=== PATIENT | male | born 1950 | race Caucasian/White ===

== ENCOUNTER → 2018-04-18 | Outpatient (REF) | payer OTHER | LOC: M SMT 13:02 | PROVIDERS: ATTEND Nurse Practitioner Family | DX: R97.20 Elevated prostate specific antigen [PSA] (principal); Z12.5 Encounter for screening for malignant neoplasm of prostate | CPT/HCPCS: 51798; 87086; G0463 ==

== ENCOUNTER → 2018-05-03 | Outpatient (CLI) | payer OTHER ==
[~2018-05-03] MED LIST: PROHANCE 279.3MG/ML 15ML VIAL (A9576) As Ordered ONE
--- NOTE | 2018-05-03 18:36 | REP ---
Multi parametric prostate MRI without and with IV gadolinium: History: Elevated PSA. Anticipated MR ultrasound fusion directed needle biopsy procedure. Comparisons: No comparison imaging. TECHNIQUE: Using a phased array surface coil, small field of view imaging was acquired using T2-weighted scans in the axial, coronal, and sagittal imaging planes. Small field of view diffusion-weighted sequences are acquired. Small field of view axial T1-weighted scans are acquired dynamically after the intravenous administration of 13 mL of ProHance. Prostate MRI findings: Pre and postcontrast images show no evidence of adenopathy or skeletal metastatic disease. Prostate glandular dimensions are 4.7 x 3.3 x 3.2 cm. Calculated glandular volume is 28.2 ml. Seminal vesicles are unremarkable. Urinary bladder meeks appear intact. There is a 13 mm polypoid area along the right side of the rectum projecting into its lumen. A rectal neoplastic polyp is possibility. Internal hemorrhoids are a possibility as well. This should be correlated with findings on digital rectal examination. There are to nodular areas in the central gland which are identified, outlined, and transmitted for consideration of ultrasound MR fusion directed biopsy. Lesion #1 is in the left base transition zone with a calculated volume of 0.77 ml with dimensions of 1.6 x 0.6 x 1.0 cm. This is a discrete homogeneous low signal intensity focus on T2-weighted scans with no observable reduction in ADC on diffusion images and a type 2 contrast enhancement curve. Clinically significant cancer is equivocal. Lesion #2 is in the right mid transition zone with a calculated volume of 0.36 ml and diameter is 0.9 x 0.5 x 1.0 cm. It has a heterogeneous intermediate T2 signal intensity with no reduction in ADC and a type 3 contrast enhancement curve. Clinically significant cancer is equivocal. The peripheral zone is homogeneous and fairly normal appearance. Impression: 1. The multi paraventricular prostate MRI study with two nodular lesions identified and transmitted for consideration of MR/ultrasound directed fusion via needle biopsy. 2. Possible rectal polyp versus internal hemorrhoids. Correlation with digital rectal exam findings were recommended. Electronically Signed by Paul Grant MD 05/03/2018 07:00 P
== END ==
LOC: M RAD 14:24
PROVIDERS: ATTEND Nurse Practitioner Family
DX: R97.20 Elevated prostate specific antigen [PSA] (principal)
CPT/HCPCS: 72197; A9576

== ENCOUNTER → 2018-06-20 | Outpatient (CLI) | payer OTHER ==
--- NOTE | 2018-06-20 15:06 | REP ---
TRANSRECTAL PROSTATE ULTRASOUND: 06/20/2018. Clinical history: Elevated PSA. Findings: Sonographic guidance provided to Dr. Loyd of the urology division for transrectal prostate biopsy. The prostate measures 3.7 x 2.7 x 5.2 cm giving calculated volume of 26.8 ml. A few scattered calcifications are noted. Technologist has documented 19 passes with the 18 gauge needle into the prostate for biopsy. Seminal vesicles grossly normal. Impression: 1. Transrectal ultrasound-guided prostate biopsy. Electronically Signed by Jacky Arita MD 06/20/2018 05:57 P
== END ==
LOC: M SMT PRO 08:56
PROVIDERS: ATTEND Urology
DX: C61 Malignant neoplasm of prostate (principal)
CPT/HCPCS: 55700; 76872; 76942; G0416

== ENCOUNTER 2018-08-08 12:06 | Inpatient (IN) | payer OTHER ==
[~2018-08-08] VITALS: Ht 167.6 cm; Wt 66.2 kg
[~2018-08-08 12:06] MED LIST changes: +ALLE4TAB11 PO; +ASPI81TA26 PO; +CLAR10CA3 PO; +HEPARIN SOD (PORCINE) 5000 UNITS/ML VIAL SQ ONE; +HYDR-643 PO; +LANS15CA PO; +LOSA25TA14 PO; +LR 1,000 ML IV SCH; +PRAV40TA2 PO; -PROHANCE 279.3MG/ML 15ML VIAL (A9576) As Ordered ONE; +TRAM50TA2 PO
[2018-08-08] MEDS ORDERED: HEPARIN SOD (PORCINE) 5000 UNITS/ML VIAL As Ordered ONE (12:37)
[2018-08-08] MEDS ORDERED: ceFAZolin 2 GM/D5W 50 ML IV BAG (J0690 PER 500MG) As Ordered ONE (12:38)
[2018-08-08] MEDS ORDERED: ROCURONIUM BROMIDE 50 MG/5 ML VIAL As Ordered ONE ×2 (12:46→15:53)
[2018-08-08] MEDS ORDERED: PROPOFOL 200 MG/20 ML VIAL As Ordered ONE ×2 (12:46→17:13)
[2018-08-08] MEDS ORDERED: LIDOCAINE 2% INJ 100 MG/5 ML SDV (FOR ANES.) As Ordered ONE (12:46)
[2018-08-08] MEDS ORDERED: MIDAZOLAM INJ 2 MG/2 ML VIAL (J2250) As Ordered ONE (12:46)
[2018-08-08] MEDS ORDERED: fentaNYL 100 MCG/2 ML INJECTION (J3010) As Ordered ONE ×2 (12:47→17:28)
[2018-08-08] MEDS ORDERED: HYDROmorphone HCL 2 MG/ML 1ML VIAL (J1170) As Ordered ONE (14:08)
[2018-08-08] MEDS ORDERED: ESMOLOL INJ 100MG/10ML VIAL As Ordered ONE (14:30)
[2018-08-08] MEDS ORDERED: ONDANSETRON 4MG/2ML VIAL (J2405) As Ordered ONE (16:54)
[2018-08-08] MEDS ORDERED: LIDOCAINE 1% SDV INJ 30 ML VIAL As Ordered ONE (17:52)
[2018-08-08] MEDS ORDERED: BUPIVACAINE HCL 0.25% 30 ML VIAL As Ordered ONE (17:52)
[2018-08-08] MEDS ORDERED: hydrOXYzine 10 MG TAB PO PRN (18:00)
[2018-08-08] MEDS ORDERED: METOCLOPRAMIDE INJ 10MG/2ML VIAL (J2765) IV PRN (18:00)
[2018-08-08] MEDS: NS 1,000 ML IV SCH (18:00)
[2018-08-08] MEDS ORDERED: MORPHINE 4 MG/ML 1ML VIAL/SYRINGE (J2270) IV PRN (18:00)
[2018-08-08] MEDS ORDERED: ONDANSETRON 4MG/2ML VIAL (J2405) IV PRN ×2 (18:00)
[2018-08-08] MEDS ORDERED: LR 1,000 ML IV SCH (18:00)
[2018-08-08] MEDS ORDERED: PERCOCET 5MG/325MG TAB PO PRN (18:00)
[2018-08-08] MEDS ORDERED: MORPHINE 10 MG/ML 1ML VIAL (J2270) IV PRN (18:00)
[2018-08-08] MEDS ORDERED: fentaNYL 100 MCG/2 ML INJECTION (J3010) IV PRN (18:00)
--- NOTE | 2018-08-08 18:23 | ROOPDOC ---
[facility] Report Of Operation Report of Operation DATE OF PROCEDURE: 08/08/18 PREPROCEDURE DIAGNOSES: Prostate Cancer. POSTPROCEDURE DIAGNOSES: Prostate Cancer. PROCEDURE: Robotic-assisted Laparoscopic Radical Prostatectomy with Bilateral Pelvic Lymph Node Dissection. SURGEON: Daquan Wells MD DIRECTOR OF MEDICARE: Christy Morales NP ANESTHESIA: General. OPERATIVE INDICATIONS: This is a 67 year old male with intermediate risk clinical T1c [place] 3+4 prostate cancer. After a discussion of the options for treatment, he elected to undergo the above procedure. DESCRIPTION OF PROCEDURE: The patient was brought to the operating room and general anesthesia was induced. Prophylactic antibiotics were infused. He was then placed in the supine position and prepped and draped in the usual sterile fashion. At this point, a Barrientos catheter was inserted into the bladder and the balloon was filled with 10 mL of sterile water. We then made a midline incision just above the umbilicus for an 8 mm port. A Veress needle was utilized to achieve pneumoperitoneum. Next, an 8 mm port was inserted into the incision and subsequently a camera was inserted. There were no injuries from the Veress needle or initial trocar placement. At this point, we placed the remaining ports, including a 12 mm biology laboratory assistant port and then three robotic ports in the usual configuration in line with the [facility]. Once all the ports were placed, the robot was docked. Lysis of adhesions between the sigmoid colon and abdominal wall was then performed. The bladder was then released from the anterior abdominal wall using electrocautery. Once the bladder was dropped, the fat overlying the prostate was cleared using electrocautery. The superficial dorsal vein was controlled with electrocautery. The endopelvic fascia was opened on both sides and the dorsal venous complex was cleared. Next, a #0 Vicryl [id number]-mz-bbcly stitch was placed around the dorsal venous complex. Once that was done, the bladder was opened and dissected away from the prostate. At this point, the prostate was lifted up. At this point, the prostate was lifted up. The vasa deferentia were identified in the midline. They were controlled with electrocautery and then transected. The seminal vesicles were also dissected off bilaterally. The rectum was safely mobilized away from the prostate. At this point I ligated and transected bilateral prostatic pedicles using the Harmonic scalpel. The pedicles were carried towards the apex. After taking care of the pedicles and mobilizing the rectum off the prostate below, the prostate was only connected by the urethra. At this point, the dorsal venous complex was transected with electrocautery. The urethra was then opened and the catheter was withdrawn and the posterior urethra was transected, thus freeing the prostate. At this point, we checked for hemostasis and it did appear very good. Next, we performed bilateral pelvic lymph node dissection. This was done in a standard fashion. The limits of dissection were the iliac vein proximally, the obturator nerve distally, the pelvic sidewall laterally, and the bladder medially. All lymphatic tissue within these limits was removed. I performed the same procedure on both the right and left sides. Hemostasis was then obtained with a combination of bipolar electrocautery and Weck clips. The lymphatic packets were then placed in separate Endo Catch bags for future retrieval. Once hemostasis was confirmed, I then moved on to perform the vesicourethral anastomosis. The vesicourethral anastomosis was performed in running fashion using a Quill stitch. Once this was done, the final #20-Cambodian Barrientos catheter was placed. The balloon was filled with 15 mL of sterile water. Upon completion of the vesicourethral anastomosis, it was tested by filling the bladder with sterile water. The anastomosis appeared to be watertight. At this point, the prostate and seminal vesicles were placed in an Endo Catch bag for future retrieval. The robot was then undocked. A Yeimi fascial closure device was utilized to place a #0 Vicryl suture between the fascia of the 12 mm biology laboratory assistant port. At this point, a Lon-Lentz drain was brought in through the left robotic port skin site and the drain was positioned anterior to the bladder. The drain was secured to the skin with #2-0 Ethilon suture. Next, all the remaining ports were removed and there did not appear to be any bleeding from any of the port sites. The prostate, as well as the lymphatic packets were then extracted from the camera port site after the skin was extended. The fascia in this incision was then closed with a running #0 Vicryl stitch. The previously placed #0 Vicryl free ties through the biology laboratory assistant port were then tied down and all incisions were irrigated. Last, all of the incisions were closed with running subcuticular #4-0 Monocryl sutures. Local anesthesia was applied. Dermabond was then applied to the incisions. This marked the conclusion of the procedure. The patient was then awakened from anesthesia and transported to the recovery room in stable condition. ESTIMATED BLOOD LOSS: 50 mL. COMPLICATIONS: None. SPECIMENS: Prostate and seminal vesicles, right pelvic lymph nodes, left pelvic lymph nodes. PLAN: The patient will be admitted to the hospital postoperatively, and he will likely be discharged home within the next 1-2 days. DAQUAN WELLS MD Aug 08, 2018 18:23
[2018-08-08 18:31] LABS: HEMATOCRIT 39.2 % (42.0-52.0); HEMOGLOBIN 13.4 g/dl (13.5-17.5); MEAN CORPUSCULAR HEMOGLOBIN 30.7 pg (27.0-33.0); MEAN CORPUSCULAR HGB CONC 34.2 g/dl (32.0-36.5); MEAN CORPUSCULAR VOLUME 89.7 fl (80.0-96.0); PLATELET COUNT, AUTOMATED 274 10^3/uL (150-450); RED BLOOD COUNT 4.37 10^6/uL (4.30-6.10); WHITE BLOOD COUNT 14.9 10^3/uL (4.0-10.0)
[2018-08-08 18:32] LABS: BLOOD UREA NITROGEN 13 MG/DL (7-18); CALCIUM LEVEL 8.3 MG/DL (8.8-10.2); CARBON DIOXIDE LEVEL 25 MEQ/L (21-32); CHLORIDE LEVEL 107 MEQ/L (98-107); CREATININE FOR GFR 1.26 MG/DL (0.70-1.30); GLOMERULAR FILTRATION RATE > 60.0 (>49); GLUCOSE, FASTING 160 MG/DL (70-100); POTASSIUM SERUM 4.1 MEQ/L (3.5-5.1); SODIUM LEVEL 138 MEQ/L (136-145)
[2018-08-08 19:00] VITALS: BP 129/59
[2018-08-08 19:30] VITALS: BP 164/74
[2018-08-08] MEDS: DOCUSATE SODIUM 100 MG CAP PO SCH (20:04)
[2018-08-08] MEDS: traMADol 50 MG TAB PO PRN (20:05)
[2018-08-08 20:30] VITALS: BP 155/68
[2018-08-08] MEDS ORDERED: PRAVASTATIN 20 MG TAB PO SCH (21:00)
[2018-08-08 21:30] VITALS: BP 156/70
[2018-08-08 22:30] VITALS: BP 152/74
[2018-08-08] MEDS: ACETAMINOPHEN TAB 650MG DOSE (2X325MG) PO PRN (22:57)
[2018-08-08] MEDS: HEPARIN SOD (PORCINE) 5000 UNITS/ML VIAL SC SCH (22:58)
[2018-08-08] MEDS: ceFAZolin SOD 1 GM in D5W MINI-BAG PLUS 50 ML IV SCH (22:58)
[2018-08-08] MEDS ORDERED: POLYVINYL ALCOHOL OPHTH SOLN 15 ML(LIQUITEARS) OD PRN (23:15)
[2018-08-08 23:30] VITALS: BP 160/72
[2018-08-09] MEDS: NS 1,000 ML IV SCH (02:52)
[2018-08-09] MEDS: traMADol 50 MG TAB PO PRN ×3 (02:53→13:37)
[2018-08-09 04:00] VITALS: BP 150/72
[2018-08-09] MEDS: HEPARIN SOD (PORCINE) 5000 UNITS/ML VIAL SC SCH ×2 (06:00→13:36)
[2018-08-09] MEDS: ceFAZolin SOD 1 GM in D5W MINI-BAG PLUS 50 ML IV SCH (06:00)
[2018-08-09 06:29] LABS: HEMATOCRIT 36.8 % (42.0-52.0); HEMOGLOBIN 12.7 g/dl (13.5-17.5); MEAN CORPUSCULAR HEMOGLOBIN 30.8 pg (27.0-33.0); MEAN CORPUSCULAR HGB CONC 34.5 g/dl (32.0-36.5); MEAN CORPUSCULAR VOLUME 89.1 fl (80.0-96.0); PLATELET COUNT, AUTOMATED 289 10^3/uL (150-450); RED BLOOD COUNT 4.13 10^6/uL (4.30-6.10); WHITE BLOOD COUNT 14.6 10^3/uL (4.0-10.0)
[2018-08-09 06:53] LABS: BLOOD UREA NITROGEN 18 MG/DL (7-18); CARBON DIOXIDE LEVEL 25 MEQ/L (21-32); CHLORIDE LEVEL 107 MEQ/L (98-107); CREATININE FOR GFR 1.17 MG/DL (0.70-1.30); GLOMERULAR FILTRATION RATE > 60.0 (>49); GLUCOSE, FASTING 122 MG/DL (70-100); POTASSIUM SERUM 4.1 MEQ/L (3.5-5.1); SODIUM LEVEL 138 MEQ/L (136-145)
--- NOTE | 2018-08-09 07:45 | IPNPDOC ---
Assessment/Plan Date Seen The patient was seen on 08/09/18. Patient Summary This is a 67 y/o M POD1 s/p RALP w/ BPLND. He is doing well. Vitals are stable. Good UOP w/ minimal drain output. Plan/VTE VTE Prophylaxis Ordered?: Yes VTE Exclusion Mechanical Proph: N/A:VTE Prophy Ordered VTE Exclusion Pharmacological: N/A:VTE Prophy Ordered Plan/Urinary Catheter Urinary Catheter: Other Catheter: (catheter will need to stay in for 7-10 days for healing of the vesicourethral anastomosis) Plan - d/c IVF - tramadol prn pain - cont home meds - SCDs when in bed - SQH - incentive spirometry - strict I/Os - advance diet as tolerated - possible discharge home later today Subjective Review oF Systems Chief Complaint The patient is a 67-year-old male admitted with a reason for visit of Prostate Cancer. Events since Last Encounter No acute events o/n. Good pain control. No n/v. Has not ambulated yet. No flatus. No f/c/ns. Objective Physical Examination General Exam: Alert, Cooperative, No Acute Distress ABDOMEN EXAM: Soft, Tenderness (mild), Other (incisions clean/dry/intact; WILVER w/ serosanguinous output) Skin Exam: Nl turgor and temperature Neuro Exam: Normal Speech Psych Exam: Mental status NL, Mood NL Other physical findings catheter in place, draining clear urine Vital Signs/I&O Vital Signs Date Time Temp Pulse Resp B/P (MAP) Pulse Ox O2 Delivery O2 Flow Rate FiO2 08/09/18 04:00 99.3 80 18 150/72 (98) 98 08/08/18 18:15 2 I&O- Last 24 Hours up to 6 AM 08/09/18 06:00 Intake Total 1800 ml Output Total 785 ml Balance 1015 ml Laboratory Data Labs 24H Laboratory Tests 2 08/08/18 17:59: Nucleated Red Blood Cells % (auto) 0.0, Anion Gap 6L, Glomerular Filtration Rate > 60.0, Blood Urea Nitrogen 13, Creatinine 1.26, Sodium Level 138, Potassium Level 4.1, Chloride Level 107, Carbon Dioxide Level 25, Calcium Level 8.3L 08/09/18 05:29: Nucleated Red Blood Cells % (auto) 0.0, Anion Gap 6L, Glomerular Filtration Rate > 60.0, Blood Urea Nitrogen 18, Creatinine 1.17, Sodium Level 138, Potassium Level 4.1, Chloride Level 107, Carbon Dioxide Level 25, Calcium Level 8.0L CBC/BMP Laboratory Tests 08/08/18 17:59 Red Blood Count 4.37, Mean Corpuscular Volume 89.7, Mean Corpuscular Hemoglobin 30.7, Mean Corpuscular Hemoglobin Concent 34.2, Red Cell Distribution Width 12. 1, Calcium Level 8.3 L 08/09/18 05:29 Red Blood Count 4.13 L, Mean Corpuscular Volume 89.1, Mean Corpuscular Hemoglobin 30.8, Mean Corpuscular Hemoglobin Concent 34.5, Red Cell Distribution Width 12.1, Calcium Level 8.0 L DAQUAN WELLS MD Aug 09, 2018 07:45
[2018-08-09] MEDS ORDERED: PANTOPRAZOLE 40MG TAB (PROTONIX) PO SCH (09:00)
[2018-08-09] MEDS ORDERED: LORATADINE 10 MG TAB PO SCH (09:00)
[2018-08-09] MEDS ORDERED: ASPIRIN 81 MG ENTERIC TAB PO SCH (09:00)
[2018-08-09] MEDS ORDERED: LOSARTAN 25 MG TAB PO SCH (09:00)
[2018-08-09 09:22] VITALS: BP 167/71
[2018-08-09] MEDS: DOCUSATE SODIUM 100 MG CAP PO SCH (09:23)
[2018-08-09 10:00] VITALS: BP 166/72
[2018-08-09] MEDS: ACETAMINOPHEN TAB 650MG DOSE (2X325MG) PO PRN ×2 (11:43→15:59)
[2018-08-09 14:00] VITALS: BP 160/78
[2018-08-09] MEDS ORDERED: COLA100C5 PO (16:03)
[2018-08-09] MEDS ORDERED: ACET-908 PO (16:03)
[2018-08-09] MEDS ORDERED: VIST25CA PO (16:06)
[2018-08-09] MEDS ORDERED: CIPR-249 PO (16:11)
[2018-08-09] MEDS ORDERED: ULTR50TA8 PO (16:11)
--- NOTE | 2018-08-09 16:21 | DSES ---
DATE OF ADMISSION: 08/08/2009 DATE OF DISCHARGE: 08/09/2018 ADMISSION DIAGNOSIS: Prostate cancer. DISCHARGE DIAGNOSIS: Prostate cancer. ADMITTING PHYSICIAN: Dr. All Loyd. DISCHARGING PHYSICIAN: Dr. All Loyd. PROCEDURE PERFORMED: Robotic assisted laparoscopic radial prostatectomy. Bilateral pelvic lymph node dissection on 08/08/2018. HISTORY OF PRESENT ILLNESS: This is a 67-year-old male with prostate cancer who was admitted to the hospital after undergoing the above listed procedures. HOSPITALIZATION COURSE: The patient's postoperative course was unremarkable. On postoperative day 1 he was ambulating well and tolerating a regular diet. His pain was well controlled with oral pain medications. All of his blood work was within acceptable limits. He had excellent urine output through his catheter and minimal output from the strain. His Lon Lentz drain was therefore removed on postoperative day 1. Since he is doing so well he was deemed ready for discharged. He is discharged home on postoperative day 1 with his catheter in place with the plan for him to followup in the clinic in approximately 1 week for catheter removal and to discuss pathology results.
== END 2018-08-09 17:05 | disposition home or self-care (01) | DRG 708 ==
LOC: M OR 12:06 → M MS5PR 18:45
PROVIDERS: ADMIT Urology; ATTEND Urology
PROC: 07B Lymphatic and Hemic Systems, Excision (ICD-10-PCS; 2018-08-08)
PROC: 8E0W4CZ Robotic Assisted Procedure of Trunk Region, Percutaneous Endoscopic Approach (ICD-10-PCS; 2018-08-08)
PROC: 0VT04ZZ Resection of Prostate, Percutaneous Endoscopic Approach (ICD-10-PCS; principal; 2018-08-08 14:30)
DX: C61 Malignant neoplasm of prostate (principal); Z79.82 Long term (current) use of aspirin; Z79.899 Other long term (current) drug therapy; M19.90 Unspecified osteoarthritis, unspecified site; F43.10 Post-traumatic stress disorder, unspecified

== ENCOUNTER → 2018-09-06 | Outpatient (CLI) | payer OTHER ==
[~2018-09-06] MED LIST changes: +ACET-908 PO; +CIPR-249 PO; +COLA100C5 PO; -HEPARIN SOD (PORCINE) 5000 UNITS/ML VIAL SQ ONE; -LR 1,000 ML IV SCH; +ULTR50TA8 PO; +VIST25CA PO
== END ==
LOC: M SMT 11:50
PROVIDERS: ATTEND Urology
DX: C61 Malignant neoplasm of prostate (principal)

== ENCOUNTER → 2018-10-31 | Outpatient (REF) | payer OTHER ==
[2018-10-31 13:38] LABS: APPEARANCE, URINE CLEAR (CLEAR); BACTERIA, URINE AUTO NEGATIVE (NEGATIVE); BILIRUBIN, URINE AUTO NEGATIVE (NEGATIVE); BLOOD, URINE BLOOD 2+ (NEGATIVE); COLOR, URINE YELLOW (YELLOW); GLUCOSE, URINE (UA) AUTO NEGATIVE (NEGATIVE); KETONE, URINE AUTO NEGATIVE (NEGATIVE); LEUKOCYTE ESTERASE, URINE AUTO NEGATIVE (NEGATIVE); MUCUS, URINE SMALL (NEGATIVE); NITRITE, URINE AUTO NEGATIVE (NEGATIVE); PROTEIN, URINE AUTO NEGATIVE (NEGATIVE); RBC, URINE AUTO 4 /HPF (0-3); SPECIFIC GRAVITY URINE AUTO 1.018 (1.002-1.035); SQUAMOUS EPITHELIAL CELL UR AU 0 /HPF (0-6); UROBILINOGEN, URINE AUTO 0.2 mg/dL (0.0-2.0); WBC, URINE AUTO 2 /HPF (0-3)
== END ==
LOC: M SMT 12:45
PROVIDERS: ATTEND Urology
DX: R30.0 Dysuria (principal)

== ENCOUNTER → 2018-12-04 | Outpatient (CLI) | payer OTHER | LOC: M SMT 09:10 | PROVIDERS: ATTEND Urology | DX: C61 Malignant neoplasm of prostate (principal) ==

== ENCOUNTER → 2019-03-13 | Outpatient (CLI) | payer OTHER ==
[~2019-03-13] MED LIST changes: +VENTAER INH
== END ==
LOC: M SMT 10:10
PROVIDERS: ATTEND Urology
DX: C61 Malignant neoplasm of prostate (principal)

== ENCOUNTER 2019-04-11 10:19 | Day surgery (SDC) | payer OTHER ==
[~2019-04-11] VITALS: Ht 167.6 cm; Wt 67.6 kg
[~2019-04-11 10:19] MED LIST changes: +NS 1,000 ML IV ONE
[2019-04-11] MEDS ORDERED: PROPOFOL 200 MG/20 ML VIAL As Ordered ONE (12:14)
[2019-04-11] MEDS ORDERED: LIDOCAINE 2% INJ 100 MG/5 ML SDV (FOR ANES.) As Ordered ONE (12:14)
--- NOTE | 2019-04-11 12:24 | ROOR ---
Patient Name: Vel Isbell Procedure Date: 04/11/2019 12:07 PM Date of : 1950 Age: 68 Room: [facility] Gender: Male Note Status: Finalized Procedure: Upper Endoscopy + Biopsies Indications: Dysphagia, Heartburn Providers: Justin Mccray MD Referring MD: [facility], Admin. Requesting Provider: Medicines: Monitored Anesthesia Care Complications: No immediate complications. Procedure: Pre-Anesthesia Assessment: - The heart rate, respiratory rate, oxygen saturations, blood pressure, adequacy of pulmonary ventilation, and response to care were monitored throughout the procedure. The Endoscope was introduced through the mouth, and advanced to the second part of duodenum. The upper GI endoscopy was accomplished without difficulty. The patient tolerated the procedure well. Findings: The Z-line was regular and was found 40 cm from the incisors. Multiple biopsies were obtained with cold forceps for evaluation to rule out Hobson's Esophagus randomly at the gastroesophageal junction. A medium-sized hiatal hernia was present. No other significant abnormalities were identified in a careful examination of the stomach. The exam of the duodenum was otherwise normal. Patchy, white plaques were found in the mid esophagus. Biopsies were taken with a cold forceps for histology. Impression: - Z-line regular, 40 cm from the incisors. - Medium-sized hiatal hernia. - Esophageal plaques were found, suspicious for candidiasis. Biopsied. - Multiple biopsies were obtained at the gastroesophageal junction. - The examination was otherwise normal. Recommendation: - Patient has a contact number available for emergencies. The signs and symptoms of potential delayed complications were discussed with the patient. Return to normal activities tomorrow. Written discharge instructions were provided to the patient. - High fiber diet. - Discharge patient to home. - Continue present medications. - Await pathology results. - Patient has a contact number available for emergencies. The signs and symptoms of potential delayed complications were discussed with the patient. Return to normal activities tomorrow. Written discharge instructions were provided to the patient. - Resume previous diet. - Telephone GI clinic for pathology results in 1 week. - The findings and recommendations were discussed with the patient's family. Justin Mccray MD Justin Mccray MD 04/11/2019 12:23:53 PM Electronically signed by Justin Mccray MD Number of Addenda: 0 Note Initiated On: 04/11/2019 12:07 PM Estimated Blood Loss: Estimated blood loss: none.
--- NOTE | 2019-04-11 12:46 | ROOR ---
Patient Name: Vel Isbell Procedure Date: 04/11/2019 12:08 PM Date of : 1950 Age: 68 Room: [facility] Gender: Male Note Status: Finalized Procedure: Total Colonoscopy to cecum + Bx. Indications: Screening for colorectal malignant neoplasm Providers: Justin Mccray MD Referring MD: [facility], Admin. Requesting Provider: Medicines: Monitored Anesthesia Care Complications: No immediate complications. Procedure: Pre-Anesthesia Assessment: - The heart rate, respiratory rate, oxygen saturations, blood pressure, adequacy of pulmonary ventilation, and response to care were monitored throughout the procedure. The Colonoscope was introduced through the anus and advanced to the cecum, identified by appendiceal orifice and ileocecal valve. The colonoscopy was performed without difficulty. The patient tolerated the procedure well. The quality of the bowel preparation was excellent. Findings: The perianal and digital rectal examinations were normal. Non-bleeding internal hemorrhoids were found during retroflexion. The hemorrhoids were small and Grade I (internal hemorrhoids that do not prolapse). Scattered small-mouthed diverticula were found in the recto-sigmoid colon and sigmoid colon. Skin tags were found on perianal exam. A medium polyp was found in the anus. The polyp was pedunculated. Biopsies were taken with a cold forceps for histology. The exam was otherwise normal throughout the examined colon. The exam was otherwise without abnormality. Impression: - Non-bleeding internal hemorrhoids. - Diverticulosis in the recto-sigmoid colon and in the sigmoid colon. - Perianal skin tags found on perianal exam. - One medium polyp at the anus. Biopsied. - The examination was otherwise normal. - The exam was otherwise normal to the cecum. Recommendation: - Patient has a contact number available for emergencies. The signs and symptoms of potential delayed complications were discussed with the patient. Return to normal activities tomorrow. Written discharge instructions were provided to the patient. - Resume previous diet. - Await pathology results. - Continue present medications. - Repeat colonoscopy in 10 years for screening purposes. - Return to referring physician. - The findings and recommendations were discussed with the patient's family. Justin Mccray MD Justin Mccray MD 04/11/2019 12:46:19 PM Electronically signed by Justin Mccray MD Number of Addenda: 0 Note Initiated On: 04/11/2019 12:08 PM Estimated Blood Loss: Estimated blood loss: none.
[2019-04-11 13:00] VITALS: BP 136/97
== END 2019-04-11 13:15 | disposition home or self-care (01) ==
LOC: M OPP 10:19
PROVIDERS: ATTEND Internal Medicine Gastroenterology
DX: Z12.11 Encounter for screening for malignant neoplasm of colon (principal); K64.0 First degree hemorrhoids; K62.0 Anal polyp; K64.4 Residual hemorrhoidal skin tags; K57.30 Diverticulosis of large intestine without perforation or abscess without bleeding; K44.9 Diaphragmatic hernia without obstruction or gangrene; K22.9 Disease of esophagus, unspecified; R13.0 Aphagia; R12 Heartburn; Z79.82 Long term (current) use of aspirin; Z79.891 Long term (current) use of opiate analgesic; Z79.899 Other long term (current) drug therapy; Z91.011 Allergy to milk products; Z88.1 Allergy status to other antibiotic agents; Z87.891 Personal history of nicotine dependence

== ENCOUNTER → 2019-05-03 | Outpatient (REF) | payer OTHER ==
[~2019-05-03] MED LIST changes: -NS 1,000 ML IV ONE
== END ==
LOC: M LAB REF 11:39
PROVIDERS: ATTEND Internal Medicine Gastroenterology
DX: R19.7 Diarrhea, unspecified (principal)

== ENCOUNTER 2019-06-29 12:41 | Day surgery (SDC) | payer OTHER ==
[~2019-06-29] VITALS: Ht 167.6 cm; Wt 68.1 kg
[~2019-06-29 12:41] MED LIST changes: +LIDOCAINE 1% MDV 20ML VIAL SQ PRN; +LR 1,000 ML IV ONE; +metroNIDAZOLE 500 MG in IV 1 EA IV ONE
[2019-06-29] MEDS ORDERED: fentaNYL 100 MCG/2 ML INJECTION (J3010) As Ordered ONE (14:12)
[2019-06-29] MEDS ORDERED: ONDANSETRON 4MG/2ML VIAL (J2405) As Ordered ONE (14:12)
[2019-06-29] MEDS ORDERED: MIDAZOLAM INJ 2 MG/2 ML VIAL (J2250) As Ordered ONE (14:12)
[2019-06-29] MEDS ORDERED: propofoL 200 MG/20 ML VIAL As Ordered ONE (14:13)
[2019-06-29] MEDS ORDERED: LIDOCAINE 2% INJ 100 MG/5 ML SDV (FOR ANES.) As Ordered ONE (14:13)
[2019-06-29] MEDS ORDERED: BUPIVACAINE HCL 0.25% 10 ML VIAL As Ordered ONE (14:57)
[2019-06-29] MEDS ORDERED: BUPIVACAINE LIPOSOME/PF 1.3% 20ML VIAL (13.3MG/ML)(EXPAREL)(C9290 PER1MG) As Ordered ONE (14:57)
[2019-06-29] MEDS ORDERED: ROCURONIUM BROMIDE 50 MG/5 ML VIAL As Ordered ONE (15:00)
[2019-06-29] MEDS ORDERED: dexameTHASONE 4 MG/ML 1ML VIAL (J1100) As Ordered ONE (15:00)
[2019-06-29] MEDS ORDERED: SUGAMMADEX SODIUM 500 MG/5 ML VIAL (BRIDION) As Ordered ONE (15:59)
[2019-06-29] MEDS ORDERED: ONDANSETRON 4MG/2ML VIAL (J2405) IV PRN (17:00)
[2019-06-29] MEDS ORDERED: fentaNYL 100 MCG/2 ML INJECTION (J3010) IV PRN (17:00)
[2019-06-29] MEDS ORDERED: KETOROLAC 30 MG/ML VIAL (J1885) IV PRN (17:00)
[2019-06-29] MEDS ORDERED: PERCOCET 5MG/325MG TAB PO PRN (17:00)
[2019-06-29] MEDS ORDERED: LR 1,000 ML IV SCH (17:00)
[2019-06-29] MEDS ORDERED: NORCO, ANEXSIA 5/325MG TABLET (HYDROcodone/ACETAMINOPHEN) PO PRN (17:00)
--- NOTE | 2019-06-29 17:01 | ROOPDOC ---
[facility] Report Of Operation Report of Operation DATE OF PROCEDURE: 06/29/19 PREPROCEDURE DIAGNOSES: ANAL POLYPS/Papilloma. POSTPROCEDURE DIAGNOSES: same. PROCEDURE: Exam under anesthesia, excision of multiple anal canal polyps. SURGEON: Sarah Nieto MD METALWORKER: ANESTHESIA: General Anesthesia. ESTIMATED BLOOD LOSS: Approximately 10 mL. COMPLICATIONS: none. REMARKS: Patient found to have a large anal polyp during colonoscopy, path showing papilloma with atypia. Patient reports that he could sometimes noticed that the polyp prolapses out after bowel movement that he has to push this back in. Denies any bleeding within it. DESCRIPTION OF PROCEDURE: Patient was brought to the operating room. He received Flagyl 500 mg IV preoperatively for prophylaxis. Ari's and compression boots were placed on both lower extremities were DVT prophylaxis. Gen. endotracheal anesthesia was then started a new stent placed in a prone jackknife position. Bilateral gluteal nylon tapes were placed to place the anal verge into view. The perianal area, perineal area was then prepped and draped in usual sterile fashion.We paused for a surgical timeout using both pre-incision safety checklist to verify correct patient, procedure site and additional clinical information prior to beginning the procedure On examination of the anal verge he has some loose hemorrhoidal skin tags both at the anterior and posterior midline, more prominent at the posterior midline. With retraction of the posterior hemorrhoidal skin tags were numerous small 2-3 mm polypoid growths underneath it as it enters C anal canal. A univalve speculum was then placed and the anal canal was inspected circumferentially. There is a large polypoid structure at the anterior midline with a long stalk. IT is about 2 cm in size. The surrounding mucosa is thickened. This was delivered into view outside of the anal verge which was allowed by the long stalk of the polyp. There are couple more small 2-3 mm polypoid growths slightly a centimeter internal to this and this was also delivered into view. A mixture of Exparel and one 4% Marcaine was liberally infiltrated through the subcutaneous tissue surrounding the anal verge. Using a Bovie with a needle tip the polyp was excised at its stalk. The surrounding hemorrhoidal tissue was not disturbed. The mucosal opening was then closed with a running suture of 3-0 Vicryl. He's got several more areas of 1-2 millimeter polypoid growths within the anal canal that I removed and left the mucosal opening in place as they are small. Over at the posterior midline where he has a bunch of polypoid growths this was removed in one piece and the mucosal opening was likewise closed with 3-0 Vicryl. After final check for hemostasis, Vancenase cause was placed at the anal verge and bulky gauze dressing then placed held in placed with paper tape and postoperative mesh underwear. Patient was transferred to the stretcher in a supine position, awakened and extubated and then brought to recovery room in stable condition. SARAH NIETO MD Jun 29, 2019 17:01
[2019-06-29] MEDS: LABETALOL HCL 100 MG/20 ML VIAL IV PRN ×5 (17:07→17:27)
[2019-06-29] MEDS ORDERED: LABETALOL HCL 100 MG/20 ML VIAL As Ordered ONE (17:10)
[2019-06-29] MEDS ORDERED: LOSARTAN 25 MG TAB PO ONE (17:45)
[2019-06-29 18:30] VITALS: BP 183/81
== END 2019-06-29 18:56 | disposition home or self-care (01) ==
LOC: M SDC 12:41
PROVIDERS: ATTEND Surgery
DX: K62.0 Anal polyp (principal); K64.4 Residual hemorrhoidal skin tags; I10 Essential (primary) hypertension; E78.00 Pure hypercholesterolemia, unspecified; R00.1 Bradycardia, unspecified; K21.9 Gastro-esophageal reflux disease without esophagitis; M19.041 Primary osteoarthritis, right hand; M19.042 Primary osteoarthritis, left hand; F43.10 Post-traumatic stress disorder, unspecified; J44.9 Chronic obstructive pulmonary disease, unspecified; G47.9 Sleep disorder, unspecified; N28.1 Cyst of kidney, acquired; Z85.46 Personal history of malignant neoplasm of prostate; Z88.1 Allergy status to other antibiotic agents; Z91.011 Allergy to milk products; Z79.899 Other long term (current) drug therapy
CPT/HCPCS: 45990; 46922; 88305; C9290; J1100; J2250; J2405; J3010

== ENCOUNTER → 2019-07-10 | Outpatient (REF) | payer OTHER ==
[~2019-07-10] MED LIST changes: -LIDOCAINE 1% MDV 20ML VIAL SQ PRN; -LR 1,000 ML IV ONE; -metroNIDAZOLE 500 MG in IV 1 EA IV ONE
== END ==
LOC: M LABSMT 08:27
PROVIDERS: ATTEND Urology
DX: C61 Malignant neoplasm of prostate (principal)

== ENCOUNTER → 2019-10-09 | Outpatient (CLI) | payer OTHER | LOC: M PLALAB 09:09 | PROVIDERS: ATTEND Urology | DX: C61 Malignant neoplasm of prostate (principal) ==

== ENCOUNTER → 2020-01-09 | Outpatient (CLI) | payer OTHER | LOC: M PLALAB 08:44 | PROVIDERS: ATTEND Urology | DX: C61 Malignant neoplasm of prostate (principal) ==

== ENCOUNTER → 2020-05-27 | Outpatient (REF) | payer OTHER | LOC: M PLALAB 10:04 | PROVIDERS: ATTEND Urology | DX: C61 Malignant neoplasm of prostate (principal) ==

== ENCOUNTER → 2020-08-26 | Outpatient (REF) | payer OTHER ==
[~2020-08-26] MED LIST changes: -ACET-908 PO; +ACET-910 PO
== END ==
LOC: M PLALAB 12:58
PROVIDERS: ATTEND Urology
DX: C61 Malignant neoplasm of prostate (principal)

== ENCOUNTER → 2020-11-27 | Outpatient (CLI) | payer OTHER | LOC: M PLALAB 11:58 | PROVIDERS: ATTEND Urology | DX: C61 Malignant neoplasm of prostate (principal) ==

== ENCOUNTER → 2021-02-13 | Outpatient (CLI) | payer OTHER ==
--- NOTE | 2021-02-13 14:41 | REP ---
INDICATION: PAIN IN LEFT SHOULDER COMPARISON: None. TECHNIQUE: Internal rotation, external rotation, and Y view. FINDINGS: No evidence for acute fracture or dislocation. Very minimal cortical irregularity at the acromioclavicular joint is appreciated along with minimal increased sclerosis along the calcified glenoid rim. No periarticular calcifications are appreciated. No further degenerative changes are noted. IMPRESSION: Mild age-related degenerative changes suggested. <Electronically signed by Dylan Landeros > 02/13/21 1428
== END ==
LOC: M RAD 14:18
PROVIDERS: ATTEND Physician Assistant
DX: M25.512 Pain in left shoulder (principal)

== ENCOUNTER → 2021-02-27 | Outpatient (CLI) | payer OTHER | LOC: M PLALAB 12:57 | PROVIDERS: ATTEND Urology | DX: C61 Malignant neoplasm of prostate (principal) ==

== ENCOUNTER → 2021-06-30 | Outpatient (CLI) | payer OTHER ==
[~2021-06-30] MED LIST changes: +LOSA25TA13 PO; -LOSA25TA14 PO
== END ==
LOC: M PLALAB 11:03
PROVIDERS: ATTEND Urology
DX: C61 Malignant neoplasm of prostate (principal)

== ENCOUNTER → 2021-09-22 | Outpatient (CLI) | payer OTHER | LOC: M PLALAB 09:22 | PROVIDERS: ATTEND Urology | DX: C61 Malignant neoplasm of prostate (principal) ==

== ENCOUNTER → 2021-10-05 | Outpatient (REF) | payer OTHER ==
[2021-10-05 14:12] LABS: APPEARANCE, URINE CLEAR (CLEAR); BACTERIA, URINE AUTO NEGATIVE (NEGATIVE); BILIRUBIN, URINE AUTO NEGATIVE (NEGATIVE); BLOOD, URINE BLOOD 2+ (NEGATIVE); COLOR, URINE YELLOW (YELLOW); GLUCOSE, URINE (UA) AUTO NEGATIVE (NEGATIVE); KETONE, URINE AUTO NEGATIVE (NEGATIVE); LEUKOCYTE ESTERASE, URINE AUTO NEGATIVE (NEGATIVE); NITRITE, URINE AUTO NEGATIVE (NEGATIVE); PROTEIN, URINE AUTO NEGATIVE (NEGATIVE); RBC, URINE AUTO 12 /HPF (0-3); SPECIFIC GRAVITY URINE AUTO 1.016 (1.002-1.035); SQUAMOUS EPITHELIAL CELL UR AU 0 /HPF (0-6); UROBILINOGEN, URINE AUTO 0.2 mg/dL (0.0-2.0); WBC, URINE AUTO 0 /HPF (0-3)
== END ==
LOC: M SMT 12:59
PROVIDERS: ATTEND Urology
DX: R31.29 Other microscopic hematuria (principal)

== ENCOUNTER → 2021-10-19 | Outpatient (CLI) | payer OTHER ==
[~2021-10-19] MED LIST changes: +ISOVUE-370 76% 100ML VIAL As Ordered ONE
== END ==
LOC: M RAD 13:06
PROVIDERS: ATTEND Urology
DX: R31.29 Other microscopic hematuria (principal)
CPT/HCPCS: 74178; Q9967

== ENCOUNTER → 2022-01-21 | Outpatient (REF) ==
[~2022-01-21] MED LIST changes: -ISOVUE-370 76% 100ML VIAL As Ordered ONE
== END ==
LOC: M RAD 12:37
PROVIDERS: ATTEND Physician Assistant Medical
DX: M25.819 Other specified joint disorders, unspecified shoulder (principal); M25.711 Osteophyte, right shoulder

== ENCOUNTER → 2022-04-06 | Outpatient (CLI) | payer OTHER | LOC: M PLALAB 10:13 | PROVIDERS: ATTEND Urology | DX: C61 Malignant neoplasm of prostate (principal) ==

== ENCOUNTER → 2022-07-08 | Outpatient (CLI) | payer MEDICARE, OTHER | LOC: M RAD 12:32 | PROVIDERS: ATTEND Nurse Practitioner Family | DX: R09.89 Other specified symptoms and signs involving the circulatory and respiratory systems (principal); F17.210 Nicotine dependence, cigarettes, uncomplicated ==

== ENCOUNTER → 2022-10-05 | Outpatient (CLI) | payer MEDICARE, OTHER | LOC: M PLALAB 10:56 | PROVIDERS: ATTEND Urology | DX: C61 Malignant neoplasm of prostate (principal) ==

== ENCOUNTER → 2023-04-06 | Outpatient (CLI) | payer MEDICARE, OTHER | LOC: M PLALAB 11:54 | PROVIDERS: ATTEND Urology | DX: C61 Malignant neoplasm of prostate (principal) ==

== ENCOUNTER → 2023-09-19 | Outpatient (CLI) | payer OTHER, MEDICARE | LOC: M PLALAB 10:39 | PROVIDERS: ATTEND Urology | DX: C61 Malignant neoplasm of prostate (principal) ==

== ENCOUNTER → 2024-03-15 | Outpatient (CLI) | payer OTHER | LOC: M RAD 13:42 | PROVIDERS: ATTEND Internal Medicine Critical Care Medicine | DX: Z12.2 Encounter for screening for malignant neoplasm of respiratory organs (principal); F17.218 Nicotine dependence, cigarettes, with other nicotine-induced disorders; R91.8 Other nonspecific abnormal finding of lung field ==

== ENCOUNTER → 2024-04-18 | Outpatient (CLI) | payer OTHER, MEDICARE | LOC: M PLALAB 10:17 | PROVIDERS: ATTEND Urology | DX: C61 Malignant neoplasm of prostate (principal) ==

== ENCOUNTER → 2024-07-11 | Outpatient (CLI) | payer MEDICARE, OTHER | LOC: M SLEEP 20:00 | PROVIDERS: ATTEND Internal Medicine Critical Care Medicine | DX: G47.30 Sleep apnea, unspecified (principal) ==

== ENCOUNTER → 2025-04-18 | Outpatient (CLI) | payer OTHER, MEDICARE ==
[~2025-04-18] MED LIST changes: -PRAV40TA2 PO; +PRAV40TA85 PO
== END ==
LOC: M RAD 12:58
PROVIDERS: ATTEND Internal Medicine Critical Care Medicine
DX: Z12.2 Encounter for screening for malignant neoplasm of respiratory organs (principal); R91.8 Other nonspecific abnormal finding of lung field; F17.218 Nicotine dependence, cigarettes, with other nicotine-induced disorders

== ENCOUNTER → 2025-04-19 | Outpatient (CLI) | payer OTHER, MEDICARE | LOC: M PLALAB 10:43 | PROVIDERS: ATTEND Urology | DX: C61 Malignant neoplasm of prostate (principal) ==